=== PATIENT | male | born 1995 | race Hispanic/Latino ===

== ENCOUNTER 2025-06-07 23:20 | Emergency (ER) | payer SELFPAY ==
[~2025-06-07] VITALS: Ht 177.8 cm; Wt 86.2 kg
[2025-06-07 23:35] VITALS: BP 135/87; PULSE 89; RESP 17; TEMP 98.2; O2SAT 98
--- NOTE | 2025-06-07 23:54 | ERN ---
ED Note History of Present Illness Stated Complaint: BLOOD DRAW Chief Complaint: Mandatory Blood Draw Time Seen by MD: 23:22 Dictation: This is a 29-year-old male brought by counselor at law for a mandatory blood draw. He denied any illnesses or injury. Temperature 97.9 pulse 104 respirations 20 blood pressure 142/86 with a pulse oximetry of 98% on room air Allergies: Coded Allergies: No Known Allergies (Unverified Allergy, Unknown, 06/07/25) Past Medical History Past Medical History: No Pertinent History Surgical History: None Family History: Negative Social History: ETOH RN Note Reviewed/Agreed w/PFSH: Yes Review of System Dictation Constitutional: Negative for fever,chills, and weight loss Eyes: Negative for injury, pain,redness, and discharge ENT: Negative for injury,pain or swelling Cardiovascular: Negative for chest pain, palpitations, and edema Respiratory: Negative for shortness of breath, cough, and wheezing, Abdomen/GI: Negative for abdominal pain, nausea, vomiting, diarrhea, and c onstipation Back: Negative for injury and pain : Negative for injury, bleeding and discharge MS/Extremity: Negative for injury and deformity Skin: Negative for rash, and discoloration Neuro: Negative for headache, weakness, numbness, tingling, and seizure Psych: Negative for suicide ideation, homicidal ideation, and hallucinations Initial Vital Sign VS Vital Signs Date Time Temp Pulse Resp B/P (MAP) Pulse Ox O2 Delivery O2 Flow Rate FiO2 06/07/25 23:22 97.9 104 20 142/86 100 Room Air 06/07/25 23:35 0 21 Physical Exam Dictation General: awake, alert, NAD Head/Face: Normocephalic, atraumatic Eyes: PERRL, EOMI, vision at baseline ENT: oral cavity clear, TMs clear, no signs of infection Neck: Trachea midline, supple, no nuchal rigidity Cardiovascular: RRR, normal S1/S2, No MRGs, no JVD Respiratory: CTAB, no respiratory distress, No rales or wheezes Abdomen: Soft, non-tender, non-distended, normal bowel sounds, no guarding or rebound. Skin: Warm, dry, normal turgor, no rash MS/Extremity: Pulses equal, no cyanosis, neurovascular intact, FROM Neuro: COAx4, GCS 15, strength 5/5, CN 2-12 intact, normal cerebellar exam, normal gait, Psych: Normal behavior, mood, and affect normal Extremities-trace edema without any palpable cords, Homans sign is negative Results (Laboratory/Radiology) Labs Reviewed?: Yes ED Course ED Course Vital Signs Date Time Temp Pulse Resp B/P (MAP) Pulse Ox O2 Delivery O2 Flow Rate FiO2 06/07/25 23:35 98.2 89 17 135/87 98 Room Air* 0 21 06/07/25 23:22 97.9 104 20 142/86 100 Room Air Medical Decision Making MDM Patient is here per law enforcement request for mandatory blood draw. Patient's vital signs are stable. He is not in any distress. We will clear him to be released to law enforcement Problem List Problem List: (1) Encounter for medical clearance for patient hold DX & DISP Disposition: Discharge Departure Impression: Primary Impression: Encounter for medical clearance for patient hold Condition: Stable Additional Instructions: Patient has been evaluated in ER and blood draw per law enforcement request done Patient will be released into the law enforcement custody Referrals: SELF,REFERRAL (PCP) DELMY GARCIA MD Jun 07, 2025 23:54
== END 2025-06-07 23:58 ==
LOC: EEVIPCON 23:20 → EDH 23:20
DX: Z02.89 Encounter for other administrative examinations (principal)
CPT/HCPCS: 99283